=== PATIENT | female | born 1995 | race African-American/Black ===

== ENCOUNTER 2017-01-23 03:46 | Emergency (ER) | payer BC ==
[~2017-01-23] VITALS: Ht 157.5 cm; Wt 61.1 kg
[2017-01-23 03:52] VITALS: TEMP 37.3; Ht 157.5 cm; Wt 61.1 kg
--- NOTE | 2017-01-23 04:32 | EMERGENCY ROOM VISIT NOTE ---
History Report prepared by Marita: Sharifa Rivera Under the Supervision of: Dr. Nahomi Lewis D.O. First contact with patient: 03:56 Chief Complaint: OTHER COMPLAINT Stated Complaint: POSSIBLY EXPOSED TO UNKNOWN DRUG History of Present Illness The patient is a 21 year old female who presents to the Emergency Room with complaints of a possible exposure to an unknown drug beginning just [employer]. The patient states that she ate a marijuana brownie tonight and she has never used marijuana before. She reports that she is worried that it was laced with another drug. She notes that she does not feel much different. The patient denies any falls, cough, leg cramping or swelling, headaches, shortness of breath, nausea, vomiting, fever, and chest pain. Source of History: patient Onset: just [employer] Position: other (possible ingestion of unknown drug) Timing: other (episode) Associated Symptoms: No SOB, No chest pain, No cough, No fevers, No headache , No nausea, No vomiting Note: The patient denies any falls, leg cramping or swelling. Review of Systems See HPI for pertinent positives & negatives. A total of 10 systems reviewed and were otherwise negative. Past Medical & Surgical Medical Problems: (1) Asthma Family History No pertinent family history stated. Social History Smoking Status: Never Smoker Smokeless Tobacco Use: No Alcohol Use: none Drug Use: marijuana Housing Status: lives with family Occupation Status: employed Current/Historical Medications Scheduled Control Pills ( Control Pills), 1 TAB PO DAILY Allergies Coded Allergies: No Known Allergies (Unverified , 01/23/17) Physical Exam Vital Signs Date Time Temp Pulse Resp B/P Pulse Ox O2 Delivery O2 Flow Rate FiO2 01/23/17 05:03 90 16 127/81 98 01/23/17 03:52 37.3 92 18 125/74 97 Room Air Physical Exam HEENT: Head - normocephalic and atraumatic Pupils are equal, round, and reactive to light. Extraocular eye muscles are intact, and sclera are anicteric. Nose - moist nasal mucosa without discharge. Mouth - moist buccal mucosa. Oropharynx is nonerythematous and there is no tonsillar exudate or edema noted. Neck: Supple; no JVD, nuchal rigidity, cervical lymphadenopathy. Heart: Regular rate and rhythm. There is a normal S1 and S2 with no murmurs, clicks, or gallops appreciated. Lungs: Clear to auscultation bilaterally with no wheezes, rales, or rhonchi. Abdomen: Soft, completely nontender, nondistended, with good bowel sounds. There are no palpable pulsatile masses or hepatosplenomegaly. There is no guarding, rigidity, or rebound noted. Extremities: No evidence of cyanosis, clubbing, or edema. There are easily palpable peripheral pulses. Skin: warm and dry with good turgor and no rashes. Medical Decision & Procedures Laboratory Results Test 01/23/17 03:57 Urine Opiates Screen NEG (NEG) Urine Methadone, Qualitative NEG (NEG) Urine Barbiturates NEG (NEG) Urine Phencyclidine (PCP) Level NEG (NEG) Ur Amphetamine/Methamphetamine NEG (NEG) MDMA (Ecstasy) Screen NEG (NEG) Urine Benzodiazepines Screen NEG (NEG) Urine Cocaine Metabolite NEG (NEG) Urine Marijuana (THC) POS (NEG) Laboratory results per my review. ED Course 0412: Past medical records reviewed. The patient was evaluated in room B8. A complete history and physical exam was performed. 0458: I reevaluated and updated the patient. 0506: Upon reevaluation, the patient was doing well. I discussed findings and results with her. She verbalized agreement of the treatment plan. The patient was discharged home. Medical Decision The patient is a 21 year old female who presents to the ED with concern for ingestion of an unknown drug. LABS: Positive for Marijuana This is a 21-year-old female patient who presents to the emergency department after having a weed brownie. The patient's mother was concerned that there could've been some other drug in the brownie mix and requested that she be tested for other drugs of abuse. The patient was in agreement. The urine was collected and the tox screen was only positive for marijuana. Impression Primary Impression: Marijuana abuse Scribe Attestation The scribe's documentation has been prepared under my direction and personally reviewed by me in its entirety. I confirm that the note above accurately reflects all work, treatment, procedures, and medical decision making performed by me. Departure Information Dispostion Home / Self-Care Referrals No Doctor, Assigned (PCP) Forms HOME CARE DOCUMENTATION FORM, IMPORTANT VISIT INFORMATION, WORK / SCHOOL INSTRUCTIONS Patient Instructions ED Marijuana Abuse, [facility] Additional Instructions Avoid using drugs
[2017-01-23 04:45] LABS: BENZODIAZEPINE, URINE NEG (NEG); COCAINE,URINE NEG (NEG); PHENCYCLIDINE, URINE NEG (NEG)
[2017-01-23] MEDS ORDERED: BCPILLS PO (04:47)
[2017-01-23 05:03] VITALS: BP 127/81; PULSE 90; O2SAT 98
== END 2017-01-23 05:03 | disposition home or self-care (01) ==
LOC: C.EDB 03:48
DX: F12.10 Cannabis abuse, uncomplicated (principal); J45.909 Unspecified asthma, uncomplicated

== ENCOUNTER → 2017-10-27 | Outpatient (CLI) | payer BC ==
[~2017-10-27] MED LIST: BCPILLS PO
--- NOTE | 2017-10-27 14:14 | DIAGNOSTIC IMAGING REPORT ---
PELVIC ULTRASOUND CLINICAL HISTORY: Right-sided pelvic pain. COMPARISON STUDY: None. TECHNIQUE: Transabdominal and transvaginal sonography of the pelvis was performed. FINDINGS: The uterus measures 6.9 x 3.9 x 3.2 cm. Endometrium measures 6 mm in thickness. The left ovary is normal, measuring 3.4 x 2.4 x 2.2 cm. The right ovary measures 5.4 x 4.9 x 2.5 cm and contains a complex 3.4 cm cyst. There is color flow within each ovary. There is a moderate amount of fluid within the pelvis. IMPRESSION: 1. Complex 3.4 cm right ovarian cyst with a moderate amount of fluid within the pelvis. The findings suggest a ruptured right ovarian cyst. 2. No sonographic evidence of ovarian torsion. Electronically signed by: Phoenix Hernadez M.D. 10/27/2017 2:13 PM Dictated Date/Time: 10/27/2017 2:11 PM
== END | disposition home or self-care (01) ==
LOC: C.ULTR 13:01
PROVIDERS: ATTEND Family Medicine
DX: N83.201 Unspecified ovarian cyst, right side (principal)